=== PATIENT | female | born 1995 | race Caucasian/White ===

== ENCOUNTER 2019-07-22 08:58 | Inpatient (IN) | payer BC ==
[~2019-07-22] VITALS: Ht 162.6 cm; Wt 88.6 kg
[2019-07-22] MEDS ORDERED: OXYTOCIN 30U/ 0.9% NaCL 500ML 500 ML IV ONE (20:41)
[2019-07-22] MEDS ORDERED: OXYTOCIN 30U/ 0.9% NaCL 500ML 500 ML IV PRN (20:41)
[2019-07-22] MEDS ORDERED: TERBUTALINE 1 MG/ML, 1ML IVPush PRN (21:00)
[2019-07-22] MEDS ORDERED: METOCLOPRAMIDE 5 MG/ML, 2ML IVPush PRN (21:00)
[2019-07-22] MEDS ORDERED: SODIUM CITRATE/CITRIC ACID 30 ML UDC PO PRN (21:00)
[2019-07-22] MEDS ORDERED: TERBUTALINE 1 MG/ML, 1ML SQ PRN (21:00)
[2019-07-22] MEDS ORDERED: FENTANYL PF 100 MCG/2ML IV PRN (21:00)
[2019-07-22 21:10] LABS: BASOPHILS # (AUTO) 0.09 x10^3/uL (0-0.1); BASOPHILS % (AUTO) 1 % (0-1); EOSINOPHILS # (AUTO) 0.04 x10^3/uL (0-0.4); EOSINOPHILS % (AUTO) 0 % (1-7); LYMPHOCYTES # (AUTO) 3.59 x10^3/uL (1-3.4); LYMPHOCYTES % (AUTO) 32 % (22-44); MD NO; MEAN CORPUSCULAR HEMOGLOBIN 29.3 pg (27.0-34.8); MEAN CORPUSCULAR HGB CONC 33.4 g/dL (32.4-35.8); MEAN CORPUSCULAR VOLUME 87.8 fL (80-100); MONOCYTES # (AUTO) 0.81 x10^3/uL (0.2-0.8); MONOCYTES % (AUTO) 7 % (2-9); NEUTROPHILS # (AUTO) 6.79 x10^3/uL (1.8-6.8); NEUTROPHILS % (AUTO) 60 % (42-75); PLATELET COUNT 205 x10^3/uL (130-400); RED BLOOD COUNT 4.42 x10^6/uL (3.82-5.3); RED CELL DISTRIBUTION WIDTH 14.3 % (9.6-15.2)
[2019-07-22] MEDS ORDERED: MISOPROSTOL 25 MCG TABLET ONE (21:49)
[2019-07-22] MEDS: LACTATED RINGERS 1,000 ML IV SCH (22:10)
[2019-07-22] MEDS: MISOPROSTOL 25 MCG TABLET VG PRN (22:11)
[2019-07-23] MEDS ORDERED: NEWBORN KIT ONE (00:07)
[2019-07-23] MEDS ORDERED: MISOPROSTOL 25 MCG TABLET ONE (02:27)
[2019-07-23] MEDS: MISOPROSTOL 25 MCG TABLET VG PRN (02:32)
[2019-07-23 08:00] VITALS: BP 153/84
[2019-07-23] MEDS ORDERED: FENTANYL PF 100 MCG/2ML ONE ×2 (08:54→11:47)
[2019-07-23] MEDS: FENTANYL PF 100 MCG/2ML IVPush PRN ×2 (08:58→11:51)
[2019-07-23] MEDS ORDERED: LIDOCAINE 1%, 20ML ONE (09:11)
[2019-07-23] MEDS ORDERED: MISOPROSTOL 200 MCG TABLET ONE (09:11)
[2019-07-23] MEDS ORDERED: OXYTOCIN 30U/ 0.9% NaCL 500ML 500 ML ONE (09:12)
[2019-07-23] MEDS: LACTATED RINGERS 1,000 ML IV SCH ×2 (09:20→20:32)
[2019-07-23] MEDS ORDERED: FENTANYL/BUPIV./NS/PF 250 ML EPIDCONT SCH ×2 (10:40→12:59)
[2019-07-23] MEDS ORDERED: FENTANYL PF 500 MCG, BUPIVACAINE/PF 0.5%, 30ML 62.5 ML in SODIUM CHLORIDE 0.9% 177.5 ML EPIDCONT SCH ×2 (11:00→13:30)
[2019-07-23] MEDS ORDERED: LIDOCAINE/PF 1.5% EPI 1:200K, 10 ML ONE (12:28)
[2019-07-23] MEDS ORDERED: NALOXONE 0.4 MG/ML, 1ML IVPush PRN (13:00)
[2019-07-23] MEDS ORDERED: EPHEDRINE 50 MG/ML, 1ML IVPush PRN (13:00)
[2019-07-23] MEDS ORDERED: LACTATED RINGERS 1,000 ML IVBOLUS PRN (13:00)
[2019-07-23] MEDS ORDERED: LABETALOL 5MG/ML, 20ML IVPush PRN ×3 (22:30)
[2019-07-23] MEDS ORDERED: hydrALAzine 20 MG/ML, 1ML IVPush ONE ×2 (22:30→23:00)
[2019-07-23] MEDS ORDERED: LABETALOL 5MG/ML, 20ML ONE (22:46)
[2019-07-23 22:47] LABS: BASOPHILS # (AUTO) 0.05 x10^3/uL (0-0.1); BASOPHILS % (AUTO) 0 % (0-1); EOSINOPHILS % (AUTO) 0 % (1-7); LYMPHOCYTES # (AUTO) 2.43 x10^3/uL (1-3.4); LYMPHOCYTES % (AUTO) 16 % (22-44); MD NO; MEAN CORPUSCULAR HEMOGLOBIN 29.1 pg (27.0-34.8); MEAN CORPUSCULAR HGB CONC 32.7 g/dL (32.4-35.8); MEAN PLATELET VOLUME 8.9 fL (7.4-10.4); MONOCYTES # (AUTO) 0.83 x10^3/uL (0.2-0.8); MONOCYTES % (AUTO) 6 % (2-9); NEUTROPHILS # (AUTO) 11.71 x10^3/uL (1.8-6.8); NEUTROPHILS % (AUTO) 78 % (42-75); PLATELET COUNT 216 x10^3/uL (130-400); RED CELL DISTRIBUTION WIDTH 14.1 % (9.6-15.2)
[2019-07-23 22:50] LABS: ALANINE AMINOTRANSFERASE 18 U/L (12-78); ALBUMIN 2.4 g/dL (3.4-5.0); ANION GAP 8 mmol/L (5-15); CALCIUM 8.7 mg/dL (8.5-10.1); CHLORIDE 108 mmol/L (98-107); CREATININE 1.15 mg/dL (0.55-1.02)
[2019-07-23 22:52] LABS: ALKALINE PHOSPHATASE 171 U/L (45-117); BILIRUBIN,TOTAL 0.3 mg/dL (0.2-1.0); TOTAL PROTEIN 6.8 g/dL (6.4-8.2)
[2019-07-23 23:11] LABS: CREATININE,URINE RANDOM 86.5 mg/dL
[2019-07-23] MEDS ORDERED: ACETAMINOPHEN 500 MG TABLET PO ONE (23:30)
[2019-07-23] MEDS ORDERED: GENTAMICIN PER PHARMACY MC PRN (23:30)
[2019-07-23] MEDS ORDERED: ACETAMINOPHEN 500 MG TABLET ONE (23:35)
[2019-07-23] MEDS: AMPICILLIN 2 GM in SODIUM CHLORIDE 0.9% 100 ML IV SCH (23:41)
[2019-07-23] MEDS ORDERED: GENTAMICIN 360 MG in SODIUM CHLORIDE 0.9% 100 ML IV SCH (23:45)
[2019-07-23] MEDS ORDERED: PHARMACOKINETIC CONSULTATION MC ONE (23:45)
[2019-07-23] MEDS ORDERED: PHARMACOKINETIC MONITORING MC PRN (23:45)
[2019-07-24] MEDS: LACTATED RINGERS 1,000 ML IV SCH ×5 (00:29→20:21)
[2019-07-24] MEDS ORDERED: FENTANYL/BUPIV./NS/PF 250 ML EPIDCONT ONE (05:06)
[2019-07-24] MEDS: AMPICILLIN 2 GM in SODIUM CHLORIDE 0.9% 100 ML IV SCH ×4 (07:12→23:15)
[2019-07-24 07:20] VITALS: BP 151/75
[2019-07-24] MEDS: D5%-LACTATED RINGERS 1,000 ML IV SCH ×2 (08:14→13:06)
[2019-07-24] MEDS ORDERED: ONDANSETRON 2MG/ML, 2ML ONE ×2 (11:30→19:52)
[2019-07-24] MEDS ORDERED: BUPIVACAINE 0.25% ONE (11:59)
[2019-07-24] MEDS ORDERED: ONDANSETRON 2MG/ML, 2ML IVPush PRN ×2 (12:00→21:00)
[2019-07-24] MEDS ORDERED: METOCLOPRAMIDE 5 MG/ML, 2ML ONE (14:35)
[2019-07-24] MEDS ORDERED: SODIUM CITRATE/CITRIC ACID 30 ML UDC ONE (14:35)
[2019-07-24] MEDS ORDERED: AZITHROMYCIN 500 MG in SODIUM CHLORIDE 0.9% 250 ML IV ONE ×2 (16:30→19:00)
[2019-07-24] MEDS ORDERED: LIDOCAINE-MPF 2% ,5ML ONE ×3 (18:58→19:11)
[2019-07-24] MEDS ORDERED: LACTATED RINGERS 1,000 ML IVBOLUS ONE (19:00)
[2019-07-24] MEDS ORDERED: CEFAZOLIN PMX 1GM/50ML 50 ML IVPB ONE (19:00)
[2019-07-24] MEDS ORDERED: METOCLOPRAMIDE 5 MG/ML, 2ML IV ONE (19:00)
[2019-07-24] MEDS ORDERED: ONDANSETRON 2MG/ML, 2ML IVPush ONE (19:00)
[2019-07-24] MEDS ORDERED: CEFAZOLIN 1,000 MG ONE ×2 (19:12)
[2019-07-24] MEDS ORDERED: FENTANYL PF 100 MCG/2ML ONE (19:33)
[2019-07-24] MEDS ORDERED: OXYTOCIN 10 UNITS/ML, 1ML ONE ×2 (19:41)
[2019-07-24] MEDS ORDERED: HYDROmorphone 2 MG/ML, 1ML ONE (19:48)
[2019-07-24] MEDS ORDERED: KETOROLAC 30 MG/1 ML ONE (20:11)
[2019-07-24] MEDS: OXYTOCIN 30U/ 0.9% NaCL 500ML 500 ML IV SCH (20:21)
[2019-07-24] MEDS ORDERED: MORPHINE SULFATE 4 MG/ML, 1ML IVPush PRN (20:30)
[2019-07-24] MEDS ORDERED: TRANEXAMIC ACID 100 MG/ML, 10ML IV ONE (20:30)
[2019-07-24] MEDS ORDERED: ONDANSETRON 2MG/ML, 2ML IV PRN (20:30)
[2019-07-24] MEDS ORDERED: morphine SULFATE 10 MG/ML, 1ML IVPush PRN (20:30)
[2019-07-24] MEDS ORDERED: MISOPROSTOL 200 MCG TABLET PR PRN (20:30)
[2019-07-24] MEDS ORDERED: OXYcodone 5 MG/5 ML ORAL.SOL UDC PO PRN (21:00)
[2019-07-24] MEDS ORDERED: KETOROLAC 30 MG/1 ML IV PRN (21:00)
[2019-07-24] MEDS ORDERED: LABETALOL 5MG/ML, 20ML IV PRN (21:00)
[2019-07-24] MEDS ORDERED: hydrALAzine 20 MG/ML, 1ML IV PRN (21:00)
[2019-07-24] MEDS ORDERED: ACETAMINOPHEN 325 MG TABLET PO PRN (21:00)
[2019-07-24] MEDS ORDERED: HYDROmorphone 2 MG/ML, 1ML IVPush PRN (21:00)
[2019-07-24] MEDS ORDERED: PROMETHAZINE 25 MG/ML, 1ML IV PRN (21:00)
[2019-07-24] MEDS ORDERED: FENTANYL PF 100 MCG/2ML IV PRN (21:00)
[2019-07-24 21:45] VITALS: BP 123/76
[2019-07-24] MEDS: SIMETHICONE 80 MG CHEW TAB PO PRN (22:03)
[2019-07-24] MEDS: OXYcodone/APAP 5/325MG TABLET PO PRN (22:03)
[2019-07-25] VITALS: BP 134/87
[2019-07-25] MEDS: OXYcodone/APAP 5/325MG TABLET PO PRN ×5 (02:09→21:31)
[2019-07-25] MEDS: KETOROLAC 30 MG/1 ML IV SCH ×5 (02:10→21:30)
[2019-07-25] MEDS: AMPICILLIN 2 GM in SODIUM CHLORIDE 0.9% 100 ML IV SCH ×3 (03:15→08:52)
[2019-07-25 03:43] VITALS: BP 131/77
[2019-07-25] MEDS: LACTATED RINGERS 1,000 ML IV SCH ×5 (04:21→20:21)
[2019-07-25] MEDS: OXYTOCIN 30U/ 0.9% NaCL 500ML 500 ML IV SCH ×2 (06:21→16:21)
[2019-07-25 06:24] LABS: MEAN CORPUSCULAR HEMOGLOBIN 29.8 pg (27.0-34.8); MEAN CORPUSCULAR HGB CONC 33.5 g/dL (32.4-35.8); MEAN CORPUSCULAR VOLUME 88.8 fL (80-100); MEAN PLATELET VOLUME 7.9 fL (7.4-10.4); PLATELET COUNT 160 x10^3/uL (130-400); RED BLOOD COUNT 2.74 x10^6/uL (3.82-5.3); RED CELL DISTRIBUTION WIDTH 14.5 % (9.6-15.2)
[2019-07-25 07:18] LABS: MD YES
[2019-07-25 07:19] LABS: BAND#(MANUAL) 0.36 x10^3/uL; BANDS%(MANUAL) 2 % (0-7); BASOS#(MANUAL) 0.18 x10^3/uL (0-0.1); BASOS% (MANUAL) 1 % (0-1); LYMPH#(MANUAL) 2.17 x10^3/uL (1-3.4); LYMPHS% (MANUAL) 12 % (22-44); MONOS#(MANUAL) 0.36 x10^3/uL (0.3-2.7); MONOS% (MANUAL) 2 % (2-9); SEG#(MANUAL) 15.02 x10^3/uL (1.8-6.8); SEGS% (MANUAL) 83 % (42-75)
[2019-07-25 07:20] LABS: <PLATELET ESTIMATE> ADEQUATE; <PLT MORPHOLOGY> NORMAL PLT MORPH; <RBC MORPHOLOGY> NORMAL
[2019-07-25 08:30] VITALS: BP 142/91
[2019-07-25] MEDS: PRENATAL VIT/IRON/FA 1 EACH TABLET PO SCH (08:41)
[2019-07-25] MEDS ORDERED: GENTAMICIN 360 MG in SODIUM CHLORIDE 0.9% 100 ML IV SCH (12:30)
[2019-07-25] MEDS ORDERED: AMPICILLIN 2 GM in SODIUM CHLORIDE 0.9% 100 ML IV SCH (15:00)
[2019-07-25 15:42] VITALS: BP 143/84
[2019-07-25] MEDS: FERROUS SULFATE 325 MG TABLET PO SCH (18:31)
[2019-07-25 21:00] VITALS: BP 142/89
[2019-07-25] MEDS: SIMETHICONE 80 MG CHEW TAB PO PRN (21:30)
[2019-07-26 01:45] VITALS: BP 148/96
[2019-07-26] MEDS: OXYTOCIN 30U/ 0.9% NaCL 500ML 500 ML IV SCH ×2 (02:21→12:21)
[2019-07-26] MEDS: LACTATED RINGERS 1,000 ML IV SCH ×5 (02:21→20:21)
[2019-07-26] MEDS: KETOROLAC 30 MG/1 ML IV SCH ×3 (03:34→15:23)
[2019-07-26 05:30] VITALS: BP 128/80
[2019-07-26] MEDS: OXYcodone/APAP 5/325MG TABLET PO PRN ×4 (05:35→21:28)
[2019-07-26] MEDS: SIMETHICONE 80 MG CHEW TAB PO PRN ×3 (05:35→21:28)
[2019-07-26 08:00] VITALS: BP 148/89
[2019-07-26] MEDS: PRENATAL VIT/IRON/FA 1 EACH TABLET PO SCH (09:38)
[2019-07-26] MEDS: FERROUS SULFATE 325 MG TABLET PO SCH ×3 (09:38→17:00)
[2019-07-26] MEDS: DOCUSATE 100 MG CAPSULE PO PRN ×2 (09:38→21:27)
[2019-07-26 16:30] VITALS: BP 136/82
[2019-07-26 20:30] VITALS: BP 136/89
[2019-07-26] MEDS: IBUPROFEN 600 MG TABLET PO PRN (21:28)
[2019-07-27 00:50] VITALS: BP 147/82
[2019-07-27] MEDS: IBUPROFEN 600 MG TABLET PO PRN ×2 (05:02→12:28)
[2019-07-27] MEDS: OXYcodone/APAP 5/325MG TABLET PO PRN ×3 (05:02→13:25)
[2019-07-27] MEDS: DOCUSATE 100 MG CAPSULE PO PRN (08:50)
[2019-07-27] MEDS: PRENATAL VIT/IRON/FA 1 EACH TABLET PO SCH (08:50)
[2019-07-27] MEDS: FERROUS SULFATE 325 MG TABLET PO SCH ×2 (08:50→12:28)
[2019-07-27] MEDS ORDERED: OXYC-302 PO (08:57)
[2019-07-27] MEDS ORDERED: DOCU-131 PO (08:58)
[2019-07-27] MEDS ORDERED: IBUP200T49 PO (08:58)
[2019-07-27] MEDS ORDERED: FERR324T5 PO (09:01)
== END 2019-07-27 13:30 | disposition home or self-care (01) | DRG 787 ==
LOC: LDIP 20:17 → 2NW 07-24 21:42
PROVIDERS: ADMIT Obstetrics & Gynecology; ATTEND Obstetrics & Gynecology
PROC: 10D00Z1 Extraction of Products of Conception, Low, Open Approach (ICD-10-PCS; principal; 2019-07-24)
DX: O14.94 Unspecified pre-eclampsia, complicating childbirth (principal); O75.2 Pyrexia during labor, not elsewhere classified; Z37.0 Single live birth; Z3A.40 40 weeks gestation of pregnancy
CPT/HCPCS: 36415; J3490; J7121; S0020; 80053; 80170; 82570; 82803; 84156; 84550; 85025; 86592; 86850; 86900; G0378; J0290; J0456; J0690; J1170; J1885; J2405; J3010; J1580; J2590; J2765; J7050; J7120